=== PATIENT | male | born 1995 | race African-American/Black ===

== ENCOUNTER 2016-12-26 12:38 | Emergency (ER) | payer SELFPAY ==
[~2016-12-26] VITALS: Ht 157.5 cm; Wt 60.6 kg
[2016-12-26] MEDS ORDERED: BACTRIM,SEPT1 TABLET PO (15:14)
[2016-12-26 15:27] VITALS: BP 115/71
== END 2016-12-26 15:27 | disposition home or self-care (01) ==
LOC: EME 12:38
DX: L03.211 Cellulitis of face (principal)
CPT/HCPCS: 99281; 99283